=== PATIENT | male | born 1980 | race Asian ===

== ENCOUNTER 2022-07-18 09:15 | Inpatient (IN) | payer OTHER ==
[2022-07-18] MEDS ORDERED: ACETAMINOPHEN 1000 MG/100 ML BAG IVPB ONE (09:54)
[2022-07-18] MEDS ORDERED: ONDANSETRON 4 MG/2 ML VIAL IVPUSH ONE (09:54)
[2022-07-18] MEDS ORDERED: LACTATED RINGERS SOLUTION 1000 ML INFUS.BAG IV ONE (09:56)
[2022-07-18] MEDS ORDERED: ONDANSETRON 4 MG/2 ML VIAL ONE (09:58)
[2022-07-18] MEDS ORDERED: ACETAMINOPHEN INJECTION 100 ML IVPB ONE (10:00)
[2022-07-18 10:17] LABS: VENOUS BASE EXCESS -21.4 mmol/L (-2-2); VENOUS O2 SATURATION 44.6 % (70-80); VENOUS PCO2 36.2 mmHg (38-52)
[2022-07-18 10:19] LABS: HEMATOCRIT 50.7 % (35.4-49); MCH 27.7 pg (25.7-33.7); MCHC 33.6 g/dl (32.0-35.9); MEAN CELL VOLUME 82.4 fl (80-96); PLATELET COUNT 566 10^3/uL (134-434); RBC 6.15 M/mm3 (4.00-5.60); RDW 13.5 % (11.9-15.9); VENOUS PH 7.015 (7.310-7.410)
[2022-07-18] MEDS ORDERED: SODIUM BICARBONATE 8.4% 50 MEQ/50 ML VIAL ONE (10:24)
[2022-07-18 10:27] LABS: INR 1.03 (0.83-1.09); PROTHROMBIN TIME (PATIENT) 11.8 SEC (9.7-13.0)
[2022-07-18] MEDS ORDERED: SODIUM BICARBONATE 8.4% 50 MEQ/50 ML DISP.SYRIN IVPUSH ONE (10:29)
[2022-07-18 10:30] LABS: ACTIVATED PTT 31.7 SECONDS (25.2-36.5)
[2022-07-18 10:44] LABS: CHLORIDE 87 mmol/L (98-107); SODIUM 132 mmol/L (136-145)
[2022-07-18 10:51] LABS: CALCIUM 9.3 mg/dL (8.5-10.1)
[2022-07-18 10:52] LABS: ALBUMIN 4.8 g/dl (3.4-5.0); ANION GAP 35 MMOL/L (8-16); BLOOD UREA NITROGEN 40.4 mg/dL (7-18); CO2 10 mmol/L (21-32); SGPT/ALT 53 U/L (13-61)
[2022-07-18 10:54] LABS: BILIRUBIN,TOTAL 0.8 mg/dL (0.2-1); TOT PROT 8.6 g/dl (6.4-8.2)
[2022-07-18 10:55] LABS: ALK PHOS 105 U/L (45-117); CREATININE 4.5 mg/dL (0.55-1.3); SGOT/AST 11 U/L (15-37)
[2022-07-18] MEDS ORDERED: INSULIN REGULAR 100 UNITS in SODIUM CHLORIDE 99 ML IVPB SCH (11:00)
[2022-07-18 11:08] LABS: GLUCOSE,RANDOM 478 mg/dL (74-106)
[2022-07-18] MEDS ORDERED: ONDANSETRON 4 MG/2 ML VIAL IVPUSH PRN (11:20)
[2022-07-18] MEDS ORDERED: MAG HYDROX/AL HYDROX/SIMETH 30 ML UNIT-DOSE CUP PO PRN (11:26)
[2022-07-18] MEDS ORDERED: SODIUM CHLORIDE 1,000 ML IV SCH (11:30)
[2022-07-18] MEDS ORDERED: DEXTROSE 50%-WATER 25 GM/50 ML DISP.SYRIN IVPUSH PRN (11:33)
[2022-07-18 11:43] LABS: VENOUS BASE EXCESS -16.2 mmol/L (-2-2); VENOUS O2 SATURATION 58.6 % (70-80); VENOUS PCO2 33.6 mmHg (38-52)
[2022-07-18] MEDS ORDERED: INSULIN REGULAR HUMAN 100 UNITS/ML *VIAL* (FOR IVP) IVPUSH ONE (11:45)
[2022-07-18 11:47] LABS: ANISOCYTOSIS 2+; MACROCYTOSIS 0; OVALOCYTE 1+
[2022-07-18 11:48] LABS: VENOUS PH 7.152 (7.310-7.410)
[2022-07-18 12:03] LABS: EPI CELLS 8 /uL (0-25.1); HYALINE CASTS 3 /uL (0-3.1); PH,URINE 5.5 (5.0-8.0); URINE APPEARANCE CLOUDY; URINE BACTERIA 79 /uL (0-1359); URINE BILIRUBIN NEGATIVE (NEGATIVE); URINE COLOR YELLOW; URINE GLUCOSE (UA) 3+ (NEGATIVE); URINE KETONE 3+ (NEGATIVE); URINE LEUK ESTERASE NEGATIVE (NEGATIVE); URINE NITRITE NEGATIVE (NEGATIVE); URINE PROTEIN 2+ (NEGATIVE); URINE RBC 5 /uL (0-23.9); URINE UROBILINOGEN 0.2 mg/dL (0.2-1.0); URINE WBC 7 /uL (0-25.8)
[2022-07-18] MEDS ORDERED: PANTOPRAZOLE SODIUM 40 MG VIAL IVPUSH SCH (12:15)
[2022-07-18 12:39] LABS: LACTIC ACID 3.2 mmol/L (0.4-2.0)
[2022-07-18 12:41] LABS: ANION GAP 28 MMOL/L (8-16); BLOOD UREA NITROGEN 39.9 mg/dL (7-18); CALCIUM 8.6 mg/dL (8.5-10.1); CHLORIDE 92 mmol/L (98-107); CO2 11 mmol/L (21-32); CREATININE 3.5 mg/dL (0.55-1.3); GLUCOSE,RANDOM 428 mg/dL (74-106); SODIUM 131 mmol/L (136-145)
[2022-07-18 16:16] LABS: BLOOD UREA NITROGEN 32.6 mg/dL (7-18)
[2022-07-18 16:19] LABS: CREATININE 2.6 mg/dL (0.55-1.3)
[2022-07-18] MEDS: D5-NS + 40 MEQ KCL - 40 MEQ/1,000 ML INFUS.BAG IV SCH ×2 (16:46→22:24)
[2022-07-18 17:41] LABS: LIPASE 602 U/L (73-393)
[2022-07-18 18:57] LABS: AMYLASE 131 U/L (25-115)
[2022-07-18 21:16] LABS: BLOOD UREA NITROGEN 23.4 mg/dL (7-18); CALCIUM 8.4 mg/dL (8.5-10.1)
[2022-07-18] MEDS: CHLORHEXIDINE GLUCONATE 4% CLEANSER FOR DECOLONIZATION TP SCH (21:48)
[2022-07-18] MEDS: MUPIROCIN 2% TOPICAL OINTMENT FOR DECOLONIZATION NS SCH (21:48)
[2022-07-18] MEDS: HEPARIN NA (PORCINE) 5,000 UNITS/ML 1ML VIAL SQ SCH (21:49)
[2022-07-18] MEDS: PANTOPRAZOLE SODIUM 40 MG VIAL IVPUSH SCH (21:50)
[2022-07-19 01:10] LABS: CALCIUM 8.5 mg/dL (8.5-10.1)
[2022-07-19 01:14] LABS: CREATININE 1.6 mg/dL (0.55-1.3)
[2022-07-19] MEDS: D5-NS + 40 MEQ KCL - 40 MEQ/1,000 ML INFUS.BAG IV SCH (03:04)
[2022-07-19 08:21] LABS: CALCIUM 8.9 mg/dL (8.5-10.1); MAGNESIUM 2.3 mg/dL (1.8-2.4)
[2022-07-19 08:24] LABS: BLOOD UREA NITROGEN 13.6 mg/dL (7-18); CREATININE 1.3 mg/dL (0.55-1.3)
[2022-07-19 08:25] LABS: PHOSPHOROUS 1.9 mg/dL (2.5-4.9)
[2022-07-19 08:27] LABS: BILIRUBIN,TOTAL 0.5 mg/dL (0.2-1)
[2022-07-19 09:08] LABS: ALBUMIN 3.3 g/dl (3.4-5.0); TOT PROT 6.2 g/dl (6.4-8.2)
[2022-07-19 09:11] LABS: BLOOD UREA NITROGEN 13.2 mg/dL (7-18)
[2022-07-19 09:12] LABS: BASO % 0.1 % (0-2.0); HEMATOCRIT 39.9 % (35.4-49); HEMOGLOBIN 13.8 GM/dL (11.7-16.9); LYMPH % 6.7 % (8-40); MCH 27.4 pg (25.7-33.7); MCHC 34.6 g/dl (32.0-35.9); MEAN CELL VOLUME 79.3 fl (80-96); MEAN PLT VOLUME 7.2 fl (7.5-11.1); MONO % 8.2 % (3.8-10.2); PLATELET COUNT 274 10^3/uL (134-434); RBC 5.03 M/mm3 (4.00-5.60); RDW 12.8 % (11.9-15.9); WHITE BLOOD COUNT 13.6 K/mm3 (4.0-10.0)
[2022-07-19 09:14] LABS: CREATININE 1.4 mg/dL (0.55-1.3)
[2022-07-19 09:15] LABS: BILIRUBIN,TOTAL 0.6 mg/dL (0.2-1)
[2022-07-19] MEDS: MUPIROCIN 2% TOPICAL OINTMENT FOR DECOLONIZATION NS SCH ×2 (09:21→22:31)
[2022-07-19] MEDS: INSULIN (LEVEMIR) 100 UNITS/ML UNITS SQ SCH (09:21)
[2022-07-19] MEDS: PANTOPRAZOLE SODIUM 40 MG VIAL IVPUSH SCH ×2 (09:21→22:32)
[2022-07-19] MEDS: HEPARIN NA (PORCINE) 5,000 UNITS/ML 1ML VIAL SQ SCH ×2 (09:21→22:32)
[2022-07-19 09:32] LABS: ALBUMIN 3.3 g/dl (3.4-5.0); TOT PROT 6.4 g/dl (6.4-8.2)
[2022-07-19] MEDS ORDERED: ENOXAPARIN NA (PORCINE) 40 MG/0.4 ML DISP.SYRIN SQ SCH (10:00)
[2022-07-19] MEDS ORDERED: LACTATED RINGERS SOLUTION 1,000 ML/1,000 ML INFUS.BAG IV SCH (10:30)
[2022-07-19] MEDS: INSULIN SLIDING SCALE (NOVOLOG) 1 VIAL SQ SCH ×3 (11:48→21:55)
[2022-07-19] MEDS ORDERED: METOCLOPRAMIDE HCL INJECTION 10 MG/2 ML VIAL IVPUSH ONE (16:10)
[2022-07-19 17:44] LABS: CALCIUM 9.1 mg/dL (8.5-10.1)
[2022-07-19 17:45] LABS: BLOOD UREA NITROGEN 11.6 mg/dL (7-18)
[2022-07-19] MEDS: KCL 10 MEQ IVPB 10 MEQ/100 ML INFUS.BAG IVPB SCH ×2 (17:58→19:02)
[2022-07-19] MEDS: CHLORHEXIDINE GLUCONATE 4% CLEANSER FOR DECOLONIZATION TP SCH (22:32)
[2022-07-19 22:57] LABS: BLOOD UREA NITROGEN 11.5 mg/dL (7-18); CALCIUM 9.2 mg/dL (8.5-10.1)
[2022-07-19 23:01] LABS: CREATININE 0.9 mg/dL (0.55-1.3)
[2022-07-19] MEDS ORDERED: INSULIN REGULAR 100 UNITS in SODIUM CHLORIDE 99 ML IVPB SCH (23:15)
[2022-07-19] MEDS ORDERED: LACTATED RINGERS SOLUTION 1000 ML INFUS.BAG IV ONE (23:31)
[2022-07-19] MEDS ORDERED: D5-1/2NS+20 MEQ KCL - 20 MEQ/1,000 ML INFUS.BAG IV SCH (23:45)
[2022-07-20 06:56] LABS: BASO % 0.4 % (0-2.0); EOS % 0.3 % (0-4.5); HEMATOCRIT 37.5 % (35.4-49); HEMOGLOBIN 13.1 GM/dL (11.7-16.9); LYMPH % 17.2 % (8-40); MCH 27.6 pg (25.7-33.7); MCHC 34.8 g/dl (32.0-35.9); MEAN CELL VOLUME 79.2 fl (80-96); MEAN PLT VOLUME 7.5 fl (7.5-11.1); MONO % 9.4 % (3.8-10.2); NEUT % 72.7 % (42.8-82.8); PLATELET COUNT 275 10^3/uL (134-434); RBC 4.74 M/mm3 (4.00-5.60); RDW 12.6 % (11.9-15.9); WHITE BLOOD COUNT 10.2 K/mm3 (4.0-10.0)
[2022-07-20 07:23] LABS: MAGNESIUM 2.4 mg/dL (1.8-2.4)
[2022-07-20 07:25] LABS: CREATININE 0.8 mg/dL (0.55-1.3)
[2022-07-20 07:27] LABS: PHOSPHOROUS 2.7 mg/dL (2.5-4.9); TOT PROT 5.9 g/dl (6.4-8.2)
[2022-07-20 07:29] LABS: BILIRUBIN,TOTAL 0.8 mg/dL (0.2-1)
[2022-07-20] MEDS: HEPARIN NA (PORCINE) 5,000 UNITS/ML 1ML VIAL SQ SCH (09:45)
[2022-07-20] MEDS: MUPIROCIN 2% TOPICAL OINTMENT FOR DECOLONIZATION NS SCH (09:45)
[2022-07-20] MEDS: INSULIN (LEVEMIR) 100 UNITS/ML UNITS SQ SCH (09:45)
[2022-07-20] MEDS: PANTOPRAZOLE SODIUM 40 MG VIAL IVPUSH SCH (09:46)
[2022-07-20] MEDS: INSULIN SLIDING SCALE (NOVOLOG) 1 VIAL SQ SCH ×2 (12:50→16:39)
[2022-07-20] MEDS ORDERED: METHIMAZOLE 10 MG TABLET PO SCH (15:00)
[2022-07-20 16:04] VITALS: BMI 21.4
[2022-07-20 16:54] VITALS: BP 147/95; PULSE 95; RESP 18; TEMP 98.5
[2022-07-20] MEDS ORDERED: propRANOLol HCL 10 MG TABLET PO SCH (22:00)
[2022-07-21] MEDS ORDERED: PANTOPRAZOLE 40 MG TABLET PO SCH (10:00)
[2022-07-22 07:07] LABS: THYROID STIM IMMUNOGLOBULIN 5.06 IU/L (0.00-0.55)
== END 2022-07-20 16:55 | disposition home or self-care (01) | DRG 420 ==
LOC: JER 09:15 → JERBED 11:04 → JICU 11:57
PROVIDERS: ADMIT Internal Medicine Pulmonary Disease; ATTEND Internal Medicine Pulmonary Disease
DX: E11.00 Type 2 diabetes mellitus with hyperosmolarity without nonketotic hyperglycemic-hyperosmolar coma (NKHHC) (principal); N17.9 Acute kidney failure, unspecified; I10 Essential (primary) hypertension; E78.5 Hyperlipidemia, unspecified; E05.90 Thyrotoxicosis, unspecified without thyrotoxic crisis or storm; R00.0 Tachycardia, unspecified; K21.9 Gastro-esophageal reflux disease without esophagitis; R80.9 Proteinuria, unspecified; E86.0 Dehydration; R74.8 Abnormal levels of other serum enzymes; R11.14 Bilious vomiting; E86.9 Volume depletion, unspecified
CPT/HCPCS: 0241U-QW; 36415; 71045-TC-FY; 74176-TC; 76536-TC; 80048; 80053; 81003; 82010; 82150; 82308; 82803; 82962; 83036; 83605; 83690; 83735; 84100; 84439; 84443; 84445; 84480; 84481; 84484; 85025; 85610; 85730; 86140; 86341; 86376; 86850; 86900; 86901; 87040; 87086; 93005; 93010; 99285-25; J1644; Q9967